=== PATIENT | male | born 1965 | race African-American/Black ===

== ENCOUNTER 2019-11-10 16:23 | Emergency (ER) | payer MEDICAID ==
[~2019-11-10] VITALS: Ht 180.3 cm; Wt 70.8 kg
[2019-11-10 16:32] VITALS: BP 127/79
[2019-11-10 17:11] LABS: Urine Bacteria NONE SEEN /hpf (None Seen); Urine Blood Negative /uL (Negative); Urine Mucus FEW (None Seen); Urine Specific Gravity 1.028 (1.001-1.035); Urine WBC 1 /hpf (0 - 3)
== END 2019-11-10 17:32 | disposition home or self-care (01) ==
LOC: ER 16:23
DX: N39.0 Urinary tract infection, site not specified (principal); I10 Essential (primary) hypertension
CPT/HCPCS: 81001